=== PATIENT | male | born 1995 | race Caucasian/White ===

== ENCOUNTER 2022-01-06 13:44 | Outpatient (CLI) | payer OTHER, SELFPAY ==
--- NOTE | 2022-01-06 14:30 | USCV_ITS ---
Chancellor Lillian Age: 26 Gender: M : 1995 Exam Date: 01/06/2022 14:02 Ordering Phys: Beba Dubon-Esequiel GOODWIN Technologist: RENEE Exam Location: [facility] – [place] Indication: Irregular heart rate BP: 130 / 80 HR: 89 Rhythm: Sinus Technical Quality: Very technically difficult study MEASUREMENTS (Male / Female) Normal Values 2D ECHO LV Diastolic Diameter PLAX 3.0 cm 4.2 - 5.9 / 3.9 - 5.3 cm LV Systolic Diameter PLAX 1.8 cm LV Chamber Size 4.4 cm IVS Diastolic Thickness 0.7 cm 0.6 - 1.0 / 0.6 - 0.9 cm IVS Systolic Thickness 1.0 cm LVPW Diastolic Thickness 1.0 cm 0.6 - 1.0 / 0.6 - 0.9 cm LVPW Systolic Thickness 1.5 cm RV Chamber Size 4.3 cm LVOT Diameter 2.1 cm LV Ejection Fraction 2D Teich 71.1 % LA Diameter 2.7 cm LA Width 5.0 cm LA Height 3.5 cm RA Width 4.3 cm RA Height 4.5 cm IVC Diameter 1.9 cm M-MODE Aortic Annulus Diameter 3.2 cm LA Ao Ratio MM 1.2 MV E Point Septal Separation 0.2 cm DOPPLER AV Peak Velocity 88.0 cm/s LVOT Peak Velocity 51.0 cm/s AV Area Cont Eq vti 2.2 cm squared AV Area Cont Eq pk 2.0 cm squared MV Area PHT 4.3 cm squared Mitral E to A Ratio 2.1 MV E' Velocity 52.0 cm/s Mitral E to LV E' Septal Ratio 5.4 TR Peak Velocity 99.5 cm/s TR Peak Gradient 4.0 mmHg TR Mean Velocity 78.8 cm/s TR Mean Gradient 2.7 mmHg TR Velocity Time Integral 29.2 cm TV Peak E Velocity 65.0 cm/s Right Atrial Pressure 3.0 mmHg Pulmonary Artery Systolic Pressu 7.0 mmHg RV Acceleration Time 0.2 s RV Ejection Time 0.3 s RV AcT/ET 0.5 FINDINGS Left Ventricle Normal left ventricular cavity size. Normal left ventricular systolic function. Left ventricular ejection fraction is estimated at 65 %. This study is inadequate for estimation of regional wall motion abnormality. Right Ventricle Normal right ventricular size and systolic function. Right Atrium Right atrium not well visualized. Left Atrium Left atrium not well visualized. Probably normal left atrial size. Mitral Valve Mildly thickened mitral with bowing of anterior and posterior mitral valve leaflets without any prolapse. Trace mitral valve regurgitation. Aortic Valve Aortic valve not well visualized. No aortic valve stenosis. No aortic valve regurgitation. Tricuspid Valve Tricuspid valve not well visualized. Pulmonic Valve Pulmonic valve not well visualized. No pulmonary valve stenosis. No pulmonary valve regurgitation. Pericardium Trivial to small pericardial effusion along right ventricle. Aorta Normal-sized aortic root. IVC Normal IVC dimension. CONCLUSIONS 1. This is a technically very difficult study with no apical windows. 2. Normal left ventricular cavity size and systolic function. Left ventricular ejection fraction is estimated at 65 %. This study is inadequate for estimation of regional wall motion abnormality. 3. Mildly thickened mitral with bowing of anterior and posterior mitral valve leaflets without any prolapse. Trace mitral valve regurgitation. 4. No prior similar studies to compare. Lashay Epperson MD (Electronically Signed) Final Date: 11 January 2022 17:01 S
== END 2022-01-06 13:45 | disposition home or self-care (01) ==
PROVIDERS: PCP Nurse Practitioner Family; Visit Provider Nurse Practitioner Family
DX: R01.1 Cardiac murmur, unspecified (principal); I49.9 Cardiac arrhythmia, unspecified; I34.0 Nonrheumatic mitral (valve) insufficiency; R00.2 Palpitations
CPT/HCPCS: 84439; 84443; 84481; 93306